=== PATIENT | male | born 1955 | race Caucasian/White ===

== ENCOUNTER 2017-03-05 09:06 | Day surgery (SDC) | payer OTHER, MEDICARE ==
[~2017-03-05 09:06] MED LIST: Lactated Ringers 1,000 ML IV SCH; Lidocaine 1% 6 ML ONE; Lidocaine 1%/Sod Bicarbonate in NS 8.4% 1 ML Syringe IV PRN; Midazolam 1 MG/ML 2 ML SDV ONE; Propofol 200 MG/20 ML SDV ONE; Sodium Chloride 0.9% 10 ML Syringe FLUSH PRN; fentaNYL 100 MCG/2 ML SDV ONE
--- NOTE | 2017-03-05 09:45 | PCM.PREANE ---
Preanesthetic Assessment - Anesthesia/Transfusion/Family Hx Anesthesia History: Prior Anesthesia Without Reaction Family History of Anesthesia Reaction: No Transfusion History: No Prior Transfusion(s) - Review of Systems General: No Symptoms Pulmonary: No Symptoms Cardiovascular: No Symptoms Gastrointestinal: No symptoms Neurological: No Symptoms Other: Reports: Diabetes - Physical Assessment NPO Status Date: 03/04/17 NPO Status Time: 22:00 Pulse: 63 O2 Sat by Pulse Oximetry: 96 Respiratory Rate: 16 Blood Pressure: 127/69 Temperature: 97.6 F Height: 5 ft 7 in Weight: 86.183 kg ASA Class: 2 Mental Status: Alert & Oriented x3 Airway Class: Mallampati = 2 Dentition: Reports: Normal Dentition Thyro-Mental Finger Breadths: 3 Mouth Opening Finger Breadths: 3 ROM/Head Extension: Full Lungs: Clear to auscultation, Normal respiratory effort Cardiovascular: Regular Rate, Regular Rhythm - Allergies Allergies/Adverse Reactions: Allergies Allergy/AdvReac Type Severity Reaction Status Date / Time acetaminophen [From Percocet] Allergy Cannot Verified 03/04/17 14:54 Remember hydrocodone Allergy Cannot Verified 03/04/17 14:54 Remember oxycodone [From OxyContin] Allergy Cannot Verified 03/04/17 14:54 Remember - Blood Blood Available: No - Anesthesia Plan Beta Marcial: Metoprolol Med Last Dose Date: 03/04/17 Med Last Dose Time: 17:00 - Acknowledgements Anesthesia Type Planned: MAC Pt an Appropriate Candidate for the Planned Anesthesia: Yes Alternatives and Risks of Anesthesia Discussed w Pt/Guardian: Yes Pt/Guardian Understands and Agrees with Anesthesia Plan: Yes PreAnesthesia Questionnaire HEENT History: Reports: None Cardiovascular History: Reports: High Cholesterol, [place] (2002) Respiratory History: Reports: None Gastrointestinal History: Reports: GERD Genitourinary History: Reports: None HOG SAWYER History: Reports: None Psychiatric History: Reports: None Endocrine/Metabolic History: Reports: Diabetes, Type II Hematologic History: Reports: None Immunologic History: Reports: None Oncologic (Cancer) History: Reports: None Dermatologic History: Reports: None - Past Surgical History Head Surgeries/Procedures: Reports: None Cardiovascular Surgical History: Reports: Coronary Artery Bypass GI Surgical History: Reports: Appendectomy Musculoskeletal Surgical History: Reports: Shoulder Surgery, Other (See Below) ( right ankle) Other Musculoskeletal Surgeries/Procedures:: knee surgery - SUBSTANCE USE Smoking Status *Q: Former Smoker (quit 2002) Tobacco Use Within Last Twelve Months: No Second Hand Smoke Exposure: No Days Per Week of Alcohol Use: 1 (once per month) Recreational Drug Use History: No - HOME MEDS Home Medications: Home Meds Aspirin 81 mg PO DAILY 03/04/17 [History] Fish Oil/[place]-3 Fatty Acids [Fish Oil 1,000 MG] 2,000 mg PO BID 03/04/17 [ History] Lisinopril 15 mg PO DAILY 03/04/17 [History] Metoprolol Tartrate 50 mg PO BID 03/04/17 [History] Multivitamin with Minerals [Multivitamins with Minerals] 1 tab PO DAILY [History] Nitroglycerin [Nitrostat] 0.4 mg PO ASDIRECTED PRN 03/04/17 [History] Pantoprazole Sodium 40 mg PO BID 03/04/17 [History] Saxagliptin HCl [Onglyza] 2.5 mg PO BID 03/04/17 [History] Triamcinolone Acetonide [Triamcinolone Acetonide 0.5%] 1 applic TOP BID [History] atorvaSTATin [Lipitor] 40 mg PO BEDTIME 03/04/17 [History] metFORMIN HCl [Metformin HCl] 1,000 mg PO BID 03/04/17 [History] - CURRENT (IN HOUSE) MEDS Current Meds: Current Medications Lactated Ringer's (Ringers, Lactated) 1,000 mls @ 125 mls/hr IV ASDIRECTED MANSI Stop: 03/05/17 23:00 Lidocaine/Sodium Bicarbonate (Buffered Lidocaine 1% In Ns 8.4%) 0.25 ml IV ONETIME PRN PRN Reason: Prior to IV Start Stop: 03/05/17 18:00 Sodium Chloride (Saline Flush) 10 ml FLUSH ASDIRECTED PRN PRN Reason: Keep Vein Open Stop: 03/05/17 18:00 Discontinued Medications Fentanyl (Sublimaze) Confirm Administered Dose 100 mcg .ROUTE .STK-MED ONE Stop: 03/05/17 07:38 Lidocaine HCl (Xylocaine-Mpf 1%) Confirm Administered Dose 6 mls @ as directed .ROUTE .STK-MED ONE Stop: 03/05/17 07:38 Midazolam HCl (Versed 1 Mg/Ml) Confirm Administered Dose 2 mg .ROUTE .STK-MED ONE Stop: 03/05/17 07:39 Propofol (Diprivan 20 Ml) Confirm Administered Dose 200 mg .ROUTE .STK-MED ONE Stop: 03/05/17 07:38
[2017-03-05] MEDS ORDERED: Metoprolol Tartrate 50 MG Tab PO ONE (10:25)
[2017-03-05] MEDS ORDERED: Lactated Ringers 1,000 ML ONE (11:11)
--- NOTE | 2017-03-05 11:35 | PCM48HPAN ---
Post Anesthesia Note - EVALUATION WITHIN 48HRS OF ANESTHETIC Vital Signs in Normal Range: Yes Patient Participated in Evaluation: Yes Respiratory Function Stable: Yes Airway Patent: Yes Cardiovascular Function Stable: Yes Hydration Status Stable: Yes Pain Control Satisfactory: Yes Nausea and Vomiting Control Satisfactory: Yes Mental Status Recovered: Yes
--- NOTE | 2017-03-05 11:41 | PCM.OPNOTE ---
- General Post-Op/Procedure Note Date of Surgery/Procedure: 03/05/17 Operative Procedure(s): Colonoscopy with sigmoid polypectomy using cold forceps Findings: multiple moderate-sized sigmoid diverticuli and a diminutive distal sigmoid polyp, less than 5 mm in size Pre Op Diagnosis: screening colonoscopy Post-Op Diagnosis: 1. sigmoid diverticulosis. 2. diminutive sigmoid Anesthesia Technique: MAC, Moderate sedation Primary Surgeon: Lokesh Frey Pathology: sigmoid polyp EBL in mLs: 0 Complications: None Condition: Good Free Text/Narrative:: After adequate IV sedation and analgesia was obtained the patient was placed on his left side. Perianal inspection and digital rectal examination were unremarkable. A lubricated colonoscope was inserted into the rectum and advanced to the cecum without difficulty. The bowel preparation was excellent. The cecum, right colon, transverse, and descending colons were endoscopically normal with no mass lesions or inflammatory changes seen. The sigmoid had multiple moderate size uncomplicated diverticula and thickened musculature. In the distal sigmoid there was a diminutive polyp, which I removed with cold forceps. The specimen was retrieved and sent to pathology. The rectum in both views was unremarkable. Photographs were taken for the patient and for the record. Air was removed, as I finished the procedure, which he tolerated well.
[2017-03-05 12:22] VITALS: BP 121/93
== END 2017-03-05 12:03 | disposition home or self-care (01) ==
LOC: JD.SDS 09:06
PROVIDERS: ATTEND Surgery
DX: Z12.11 Encounter for screening for malignant neoplasm of colon (principal); D12.5 Benign neoplasm of sigmoid colon; K57.30 Diverticulosis of large intestine without perforation or abscess without bleeding; E11.9 Type 2 diabetes mellitus without complications; I25.2 Old myocardial infarction; Z95.1 Presence of aortocoronary bypass graft; Z87.891 Personal history of nicotine dependence
CPT/HCPCS: 45380; 82962; 88305; A9270; J2250; J3010; J7120; 00810; J2704

== ENCOUNTER 2017-03-22 13:07 | Emergency (ER) | payer OTHER, MEDICARE ==
[2017-03-22 13:15] VITALS: BP 167/89
[2017-03-22] MEDS ORDERED: Cyclobenzaprine 10 MG Tab PO ONE (13:32)
[2017-03-22] MEDS ORDERED: HYDROmorphone 1 MG/ML Syringe IM ONE (13:32)
--- NOTE | 2017-03-22 13:44 | EDM.PDOC ---
ED HPI GENERAL MEDICAL PROBLEM - General Chief Complaint: Back Pain or Injury Stated Complaint: BACK PAIN Time Seen by Provider: 03/22/17 13:29 Source of Information: Reports: Patient History Limitations: Reports: No Limitations - History of Present Illness INITIAL COMMENTS - FREE TEXT/NARRATIVE: Patient is a 61-year-old male who presents to the ED complaining of left lower back pain with radiation down the posterior aspect of the left leg to mid calf. 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 States there was no heavy lifting. Returned back to his residence about 1430 and showered. After taking a shower the patient was barely able to put his clothes on due to sudden onset of severe left lower back pain with sciatica. States since then he's been utilizing OxyContin intermittently with no relief. He has a history of similar symptoms in the past possibly 20 years ago that required multiple injections in his back. He denies having herniated disc or any surgeries to his low back. Denies incontinence to urine or stool, spinal anesthesia, or excessive tripping. Patient is a Type II diabetic with coronary artery disease that required bypass. States his diabetes is well controlled. See medication list for current medications. Onset Date: 03/21/17 Onset Time: 14:30 Duration: Constant, Getting Worse, Waxing/Waning Location: Reports: Back, Lower Extremity, Left Quality: Reports: Sharp, Stabbing, Throbbing Severity: Severe Improves with: Reports: Other (laying still) Worsens with: Reports: Other (palpation), Movement Context: Reports: Other Associated Symptoms: Reports: No Other Symptoms Treatments WAITER WAITRESS: Reports: Other (see below) (see history of present illness) Left Back Pain Score (Numeric/FACES): 10 - Related Data Allergies Allergy/AdvReac Type Severity Reaction Status Date / Time No Known Allergies Allergy Verified 03/22/17 13:15 Home Meds: Home Meds Aspirin 81 mg PO DAILY 03/04/17 [History] Fish Oil/[place]-3 Fatty Acids [Fish Oil 1,000 MG] 2,000 mg PO BID 03/04/17 [ History] Lisinopril 15 mg PO DAILY 03/04/17 [History] Metoprolol Tartrate 50 mg PO BID 03/04/17 [History] Multivitamin with Minerals [Multivitamins with Minerals] 1 tab PO DAILY [History] Nitroglycerin [Nitrostat] 0.4 mg PO ASDIRECTED PRN 03/04/17 [History] Pantoprazole Sodium 40 mg PO BID 03/04/17 [History] Saxagliptin HCl [Onglyza] 2.5 mg PO BID 03/04/17 [History] Triamcinolone Acetonide [Triamcinolone Acetonide 0.5%] 1 applic TOP BID PRN [History] atorvaSTATin [Lipitor] 40 mg PO BEDTIME 03/04/17 [History] metFORMIN HCl [Metformin HCl] 1,000 mg PO BID 03/04/17 [History] Exenatide Microspheres [Bydureon] 1 dose SUBCUT WEEKLY 03/05/17 [History] Acetaminophen/HYDROcodone [Heartwell 325-5 MG] 1 tab PO Q6H PRN #15 tablet 03/22/17 [Rx] Cyclobenzaprine [Flexeril] 10 mg PO BID PRN #15 tablet 03/22/17 [Rx] Past Medical History HEENT History: Reports: None Cardiovascular History: Reports: High Cholesterol, [place] (2002) Respiratory History: Reports: None Gastrointestinal History: Reports: GERD Genitourinary History: Reports: None CLINICAL APPEALS RN History: Reports: None Psychiatric History: Reports: None Endocrine/Metabolic History: Reports: Diabetes, Type II Hematologic History: Reports: None Immunologic History: Reports: None Oncologic (Cancer) History: Reports: None Dermatologic History: Reports: None - Past Surgical History Head Surgeries/Procedures: Reports: None Cardiovascular Surgical History: Reports: Coronary Artery Bypass GI Surgical History: Reports: Appendectomy Musculoskeletal Surgical History: Reports: Shoulder Surgery, Other (See Below) ( right ankle) Other Musculoskeletal Surgeries/Procedures:: knee surgery Social & Family History - Tobacco Use Smoking Status *Q: Former Smoker (quit 2002) Month Tobacco Last Used: 2001 Second Hand Smoke Exposure: No - Caffeine Use Caffeine Use: Reports: None - Alcohol Use Days Per Week of Alcohol Use: 1 (once per month) - Recreational Drug Use Recreational Drug Use: No Drug Use in Last 12 Months: No ED ROS GENERAL - Review of Systems Review Of Systems: See Below Respiratory: Reports: No Symptoms Cardiovascular: Reports: No Symptoms GI/Abdominal: Reports: No Symptoms Musculoskeletal: Reports: Back Pain Neurological: Reports: Difficulty Walking (secondary to pain). Denies: Numbness , Tingling ED EXAM,LOWER BACK PAIN/INJURY - Physical Exam Exam: See Below Exam Limited By: No Limitations General Appearance: Alert, WD/WN, Severe Distress, Other (pain on the floor of the examination room) Ears: Hearing Grossly Normal Nose: Normal Inspection Throat/Mouth: Normal Voice, No Airway Compromise Neck: Normal Inspection Respiratory/Chest: No Respiratory Distress, Lungs Clear, Normal Breath Sounds, No Accessory Muscle Use Cardiovascular: Normal Peripheral Pulses, Regular Rate, Rhythm GI/Abdominal: Normal Bowel Sounds, Soft, Non-Tender, No Organomegaly, No Distention Back Exam: Normal Inspection, Decreased Range of Motion, Vertebral Tenderness ( lumbar spine L4-L5). No: Paraspinal Tenderness Extremities: Normal Inspection, No Pedal Edema, Normal Capillary Refill, Limited Range of Motion (secondary to low back pain) Neurological: Alert, Normal Mood/Affect, Normal Dorsiflexion, CN II-XII Intact, Normal Plantar Flexion, No Motor/Sensory Deficits, Oriented x 3, Straight Leg Raise (L), Difficulty Walking (secondary to pain). No: Straight Leg Raise (R) Course - Vital Signs Last Recorded V/S: Last Vital Signs Temp 98.7 F 03/22/17 13:12 Pulse 63 03/22/17 17:05 Resp 16 03/22/17 17:05 BP 167/89 H 03/22/17 13:12 Pulse Ox 100 03/22/17 17:05 - Orders/Labs/Meds Orders: Active Orders 24 hr Category Date Time Status Peripheral IV Care [RC] . DIRECTED Care 03/22/17 15:14 Active Lumbar Spine 2 or 3V [CR] Stat Exams 03/22/17 15:14 Taken Peripheral IV Insertion Adult [OM.PC] Routine Oth 03/22/17 15:14 Ordered Meds: Medications Discontinued Medications Generic Name Dose Route Start Last Admin Trade Name Freq PRN Reason Stop Dose Admin Cyclobenzaprine HCl 10 mg 03/22/17 13:32 03/22/17 13:41 Flexeril PO 03/22/17 13:33 10 mg ONETIME ONE Administration Diphenhydramine HCl 50 mg 03/22/17 16:22 03/22/17 16:38 Benadryl IVPUSH 03/22/17 16:23 50 mg ONETIME ONE Administration Hydromorphone HCl 1 mg 03/22/17 13:32 03/22/17 13:38 Dilaudid IM 03/22/17 13:33 1 mg ONETIME ONE Administration Hydromorphone HCl 1 mg 03/22/17 15:12 03/22/17 15:22 Dilaudid IVPUSH 03/22/17 15:13 1 mg ONETIME ONE Administration Ketorolac Tromethamine 60 mg 03/22/17 14:29 03/22/17 14:37 Toradol IM 03/22/17 14:30 60 mg ONETIME ONE Administration Sodium Chloride 10 ml 03/22/17 15:14 03/22/17 15:24 Saline Flush FLUSH 10 ml ASDIRECTED PRN Administration Keep Vein Open - Re-Assessments/Exams Free Text/Narrative Re-Assessment/Exam: 03/22/17 13:43 We'll order Flexeril 10 mg p.o. and Dilaudid 1 mg IM. Will allow pain medications take place to see how much it will improve. Further imaging maybe required. 03/22/17 15:10 Reassessment, patient states pain is not has severe. Still having intermittent shooting pain to his back and down his leg. Ordered peripheral IV with dilaudid 1 mg IVP and lumbar spine x-ray. 03/22/17 15:47 Pain has resolved with IV Dilaudid. Awaiting x-ray of the lumbar spine to be taken. 03/22/17 16:35 X-ray of the lumbar spine did not reveal any acute bony abnormalities. Reviewed with Dr. Manuel. Pain has resolved. Patient did have some mild itching after receiving dilaudid. No rash, sob, cp, dizziness, n/v noted. Orderd benadryl 50mg IVP. Itching has subsided. Will discharge patient home with instructions as documented. Departure - Departure Time of Disposition: 16:45 Disposition: Home, Self-Care 01 Condition: good Clinical Impression: Low back pain Qualifiers: Chronicity: acute Back pain laterality: midline Sciatica presence: with sciatica Sciatica laterality: sciatica of left side Qualified Code(s): M54.42 - Lumbago with sciatica, left side - Discharge Information Prescriptions: Acetaminophen/HYDROcodone [Heartwell 325-5 MG] 1 tab PO Q6H PRN #15 tablet PRN Reason: Pain (Severe 7-10) Cyclobenzaprine [Flexeril] 10 mg PO BID PRN #15 tablet PRN Reason: Pain (Severe 7-10) Instructions: Muscle Strain, [id number], Back Injury Prevention, [id number] , Back Pain, Adult, [id number], Pain Medicine Instructions, [id number] Referrals: PCP,Not In Area [Primary Care Provider] - Forms: ED Department Discharge Additional Instructions: Refrain from any activities that cause worsening pain. Utiliz ice to the affected area 4-6 times daily, 20 minutes in duration, do not apply ice directly on the skin. Take naproxen and Tylenol for pain. For severe pain take Heartwell one tablet every 6 hours p.r.n. Take Flexeril 10 mg 3 times a day as needed as well for severe pain. do not take take Heartwell while taking the Tylenol. Followup with primary care provider this coming week if symptoms have not drastically improved. Return to the ED if you develop worsening pain, incontinence to urine or stool, saddle anesthesia, inability to walk, increased tripping, or any additional newer worsening symptoms. No driving today and while taking Heartwell/Flexeril. - My Orders Last 24 Hours: My Active Orders 03/22/17 15:14 Peripheral IV Care [RC] . DIRECTED Lumbar Spine 2 or 3V [CR] Stat Peripheral IV Insertion Adult [OM.PC] Routine - Assessment/Plan Last 24 Hours: My Active Orders 03/22/17 15:14 Peripheral IV Care [RC] . DIRECTED Lumbar Spine 2 or 3V [CR] Stat Peripheral IV Insertion Adult [OM.PC] Routine
[2017-03-22] MEDS ORDERED: Ketorolac 60 MG/2 ML SDV IM ONE (14:29)
[2017-03-22] MEDS ORDERED: HYDROmorphone 1 MG/ML Syringe IVPUSH ONE (15:12)
[2017-03-22] MEDS ORDERED: Sodium Chloride 0.9% 10 ML Syringe FLUSH PRN (15:14)
[2017-03-22] MEDS ORDERED: diphenhydrAMINE 50 MG/ML SDV IVPUSH ONE (16:22)
--- NOTE | 2017-03-24 08:03 | CR ---
Lumbar spine: AP and lateral views of the lumbar spine were obtained. Comparison: Previous lumbar spine exam of 04/09/09. Disc space narrowing is noted at L4-L5 and L5-S1. Mild disc space narrowing is noted at T11-T12, T12-L1 and L1-L2. Vertebral body heights are maintained. Mild scattered endplate osteophytes are seen. Pedicles as well as transverse and spinous processes are intact. Visualized bowel gas is within normal limits. Atherosclerotic calcification is noted within the aorta. Impression: 1. Scattered degenerative change as noted above. Findings have slightly progressed from previous exam. Diagnostic code #2
== END 2017-03-22 17:00 | disposition home or self-care (01) ==
LOC: JD.ED 13:07
DX: M54.42 Lumbago with sciatica, left side (principal); I25.2 Old myocardial infarction; E78.00 Pure hypercholesterolemia, unspecified; K21.9 Gastro-esophageal reflux disease without esophagitis; E11.9 Type 2 diabetes mellitus without complications; Z95.1 Presence of aortocoronary bypass graft; Z90.49 Acquired absence of other specified parts of digestive tract; Z98.890 Other specified postprocedural states; Z79.82 Long term (current) use of aspirin; Z79.84 Long term (current) use of oral hypoglycemic drugs; Z79.899 Other long term (current) drug therapy; Z87.891 Personal history of nicotine dependence; X50.0XXA Overexertion from strenuous movement or load, initial encounter
CPT/HCPCS: 72100; 96372; 96374; 96375; 99284; A9270; J1170; J1200; J1885; J7050

== ENCOUNTER 2025-08-15 04:54 | Emergency (ER) | payer OTHER ==
[2025-08-15] MEDS: Sodium Chloride 0.9% 10 ML Syringe FLUSH PRN ×2 (05:16→06:25)
[2025-08-15 05:34] LABS: BASOPHILS ABSOLUTE AUTO 0.1 K/mm3 (0.0-0.2); BASOPHILS PERCENT AUTO 0.7 % (0.0-1.0); EOSINOPHILS ABSOLUTE AUTO 0.2 K/mm3 (0.0-0.4); EOSINOPHILS PERCENT AUTO 2.7 % (0.0-6.0); IMMATURE GRAN ABSOLUTE AUTO 0.06 K/mm3 (0.00-0.05); IMMATURE GRAN PERCENT AUTO 0.8 % (0.0-0.4); LYMPHOCYTES ABSOLUTE AUTO 2.1 K/mm3 (1.0-4.8); LYMPHOCYTES PERCENT AUTO 27.5 % (24.0-44.0); MEAN PLATELET VOLUME 10.2 fl (9.4-12.4); MONOCYTES ABSOLUTE AUTO 0.7 K/mm3 (0.0-0.8); MONOCYTES PERCENT AUTO 9.1 % (0.0-8.0); NEUTROPHILS ABSOLUTE AUTO 4.6 K/mm3 (1.8-7.7); NEUTROPHILS PERCENT AUTO 59.2 % (41.0-71.0); NRBC ABSOLUTE 0.00 (0.00-0.02); NRBC PERCENT 0.0 % (0.0-0.2); PLATELET COUNT,PLT 183 K/mm3 (150-400); RED BLOOD CELL COUNT 5.89 M/mm3 (4.52-5.90); WHITE BLOOD CELL COUNT,WBC 7.68 K/mm3 (3.9-11.3)
[2025-08-15 05:41] LABS: A/G RATIO 1.1 (1-2); ALANINE AMINOTRANSFERASE,ALT 39.0 U/L (16-63); ASPARTATE AMNIOTRANSFERASE,AST 25.0 U/L (15-37); BILIRUBIN TOTAL 0.4 mg/dL (0.2-1.0); BLOOD UREA NITROGEN,BUN 12.0 mg/dL (7-18); CARBON DIOXIDE,CO2 26.0 mEq/L (21-32); CHLORIDE,CL 102.0 mEq/L (98-107); CREATININE 0.9 mg/dL (0.7-1.3); EST CRCL DRUG DOSING (CG) 71.4 mL/min; ESTIMATED GFR 92.0 mL/min (>60); GLUCOSE RANDOM 173.0 mg/dL (70-99); PROTEIN TOTAL,TP 7.3 g/dl (6.4-8.2); SODIUM,NA 140.0 mEq/L (136-145); TROPONIN I HIGH SENSITIVITY 7.0 pg/mL (<=76)
[2025-08-15 05:44] LABS: POTASSIUM,K 3.9 mEq/L (3.5-5.1)
[2025-08-15] MEDS: Iopamidol 755 Mg/ML 100 ML Bottle IVPUSH ONE (06:25)
[2025-08-15 07:40] LABS: APPEARANCE,URINE CLEAR (Clear); GLUCOSE,URINE 3+ (Negative); OCCULT BLOOD,URINE NEGATIVE (Negative)
[2025-08-15 07:46] LABS: SQUAMOUS EPITHELIAL CELLS,UR 0-5 /hpf (0-5)
[2025-08-15] MEDS: Alum Hydrox/Mag Hydrox/Simeth 30 ML, Lidocaine 2% 15 ML PO ONE (07:46)
[2025-08-15 07:53] LABS: TROPONIN I HIGH SENSITIVITY 7 pg/mL (<=76)
[2025-08-15 12:11] VITALS: BP 136/73; PULSE 58
== END 2025-08-15 11:48 | disposition home or self-care (01) ==
LOC: JD.ED 04:54
DX: R07.89 Other chest pain (principal); K21.9 Gastro-esophageal reflux disease without esophagitis; E11.9 Type 2 diabetes mellitus without complications; Z88.8 Allergy status to other drugs, medicaments and biological substances; Z79.82 Long term (current) use of aspirin; Z79.84 Long term (current) use of oral hypoglycemic drugs; Z79.899 Other long term (current) drug therapy; Z90.49 Acquired absence of other specified parts of digestive tract
CPT/HCPCS: 36415; 71045; 71275; 72191; 74175; 76705; 80053; 81001; 83690; 83735; 84484; 85025; 93005; 99285; A9270; J3490; J7030; Q9967; 93010; 99283